=== PATIENT | male | born 1965 | race Caucasian/White ===

== ENCOUNTER 2018-06-20 08:31 | Day surgery (SDC) | payer BC ==
[2018-06-12 16:13] LABS: BASOPHILS % (AUTO) 0.3 % (0-1); EOSINOPHILS # (AUTO) 0.2 X10'3 (0-0.9); EOSINOPHILS % (AUTO) 1.7 % (0-6); LYMPHOCYTES # (AUTO) 2.4 X10'3 (1.1-4.8); MEAN CORPUSCULAR HGB CONC 33.4 % (33.0-36.5); MEAN CORPUSCULAR VOLUME 95.7 FL (78-98); MEAN PLATELET VOLUME 8.9 FL (7.4-10.4); MONOCYTES # (AUTO) 0.6 X10'3 (0-0.9); MONOCYTES % (AUTO) 5.9 % (2-12); NEUTROPHILS # (AUTO) 6.2 X10'3 (1.8-7.7); NEUTROPHILS % (AUTO) 66.1 % (42-75); PRE OP HEMATOCRIT 45.4 % (42.0-52.0); PRE OP HEMOGLOBIN 15.2 g/dL (14.0-17.9); PRE OP PLATELET COUNT 176 X10'3 (140-440); RED BLOOD COUNT 4.75 X10'6 (4.70-6.10); RED CELL DISTRIBUTION WIDTH 14.7 % (11.5-14.5)
[2018-06-12 16:27] LABS: ALBUMIN 3.4 G/DL (3.4-5.0); ALBUMIN/GLOBULIN RATIO 1.1 (1.1-1.5); ALKALINE PHOSPHATASE 79 IU/L (46-116); BLOOD UREA NITROGEN 19 MG/DL (7-18); BUN/CREATININE RATIO 19.4 (5.4-32.0); CALCIUM 9.8 MG/DL (8.5-10.1); CHLORIDE 107 MMOL/L (99-107); CREATININE 0.98 MG/DL (0.60-1.10); PRE OP ALT 25 U/L (30-65); PRE OP ANION GAP 5 (8-16); PRE OP AST 14 U/L (10-37); PRE OP BILIRUB, TOTAL 0.4 MG/DL (0.0-1.0); PRE OP GLUCOSE 102 MG/DL (70-104); PRE OP POTASSIUM 3.9 MMOL/L (3.4-5.1); PRE OP SODIUM 141 MMOL/L (135-145); TOTAL CARBON DIOXIDE 28.8 MMOL/L (24-32); TOTAL PROTEIN 6.6 G/DL (6.4-8.2); eGFR 79 ML/MIN
[~2018-06-20] VITALS: Ht 182.9 cm; Wt 147.5 kg
[2018-06-20] VITALS (22 sets, daily range): BP systolic 108–151; BP diastolic 64–106
[~2018-06-20 08:31] MED LIST: ALLO300T2 PO; AMLO-333 PO; APIX5TAB3 PO; ATEN100T PO; DOCUMENT DATE & TIME OF BETA-BLOCKER PO ONE; FLUT15.815 BOTHNARES; IBUP1CAP3 PO; PANT-47 PO; VANCOMYCIN INJ 1000 MG in NORMAL SALINE 250ml IV.SOLN IV ONE; cefazolin/dext.iso 2gm/50ml 50 ML IV ONE; famotidine 20mg tablet PO ONE; ringers solution, lacted 1,000 ML IV SCH
[2018-06-20] MEDS ORDERED: ringers solution, lacted 1,000 ML IV SCH (09:03)
[2018-06-20] MEDS ORDERED: ondansetron/PF 4mg/2ml inj IV PRN (09:05)
[2018-06-20] MEDS ORDERED: morphine 4 MG/ML inj SYRINge IV PRN ×2 (09:05)
[2018-06-20] MEDS ORDERED: meperidine/PF 25mg/ml syringe IV PRN ×3 (09:05)
[2018-06-20] MEDS ORDERED: proCHLORperazine 10 MG/2 ml inj IV PRN (09:05)
[2018-06-20] MEDS ORDERED: methylPREDNISolone sod succ 125mg/2ml vial ONE ×2 (10:22→11:31)
[2018-06-20] MEDS ORDERED: BUPIVAcaine/PF 2.5mg/ml (0.25%) 10ml vial ONE (10:22)
[2018-06-20] MEDS ORDERED: sevoflurane 250ml liquid IH ONE (10:47)
[2018-06-20] MEDS ORDERED: dexamethasone sod phosphate 10mg/ml inj ONE (10:47)
[2018-06-20] MEDS ORDERED: LIDOcaine 1%/PF 5ML 10 MG/ML VIAL ONE (10:47)
[2018-06-20] MEDS ORDERED: fentaNYL/PF 50MCG/1 ML 2ML syringe ONE (10:56)
[2018-06-20] MEDS ORDERED: MIDAZolam 5mg/5ml vial ONE (11:09)
[2018-06-20] MEDS ORDERED: ondansetron/PF 4mg/2ml inj ONE (11:22)
[2018-06-20] MEDS ORDERED: propofol inj 20 ML IV ONE (12:46)
--- NOTE | 2018-06-20 12:50 | NUR ---
Received from OR via [facility], accompanied by Anesthesiologist DR PRYOR and report given by Anesthesiologist. PT DROWSY, ANSWERS QUESTIONS APPROPRIATELY, DENIES PAIN, RIGHT ARM IN SPLINT FROM TOP OF SHOULDER/ARM PIT TO JUST BELOW TOP OF FINGERS, STERILE PROCESSING TECH 2-3 SECONDS, FINGERS PWD. Addendum: 06/20/18 at 1321 by Randi Colorado RN Amended: Links added.
--- NOTE | 2018-06-20 16:00 | NUR ---
PT D/CD TO HOME W/, PT AND VERBALIZE UNDERSTANDING OF D/C INSTRUCTIONS, INCLUDING REGIONAL NERVE BLOCK, ALL INFORMATION AND D/C ORDERS SENT W/PT. PT COMFORTABLE AND DEMONSTRATES UNDERSTANDING OF INSTRUCTIONS. Addendum: 06/20/18 at 1623 by Randi Colorado RN Amended: Links added.
== END 2018-06-20 16:00 | disposition home or self-care (01) ==
LOC: PAS 08:31
PROVIDERS: ATTEND Orthopaedic Surgery
DX: G56.01 Carpal tunnel syndrome, right upper limb (principal); G56.21 Lesion of ulnar nerve, right upper limb; G89.18 Other acute postprocedural pain; I48.91 Unspecified atrial fibrillation; I25.2 Old myocardial infarction; I10 Essential (primary) hypertension; K21.9 Gastro-esophageal reflux disease without esophagitis; E78.5 Hyperlipidemia, unspecified; M10.9 Gout, unspecified; E66.01 Morbid (severe) obesity due to excess calories; G47.33 Obstructive sleep apnea (adult) (pediatric); J45.998 Other asthma; I49.8 Other specified cardiac arrhythmias; Z86.73 Personal history of transient ischemic attack (TIA), and cerebral infarction without residual deficits; Z91.018 Allergy to other foods; Z79.1 Long term (current) use of non-steroidal anti-inflammatories (NSAID); Z68.41 Body mass index [BMI] 40.0-44.9, adult; Z80.9 Family history of malignant neoplasm, unspecified; Z79.891 Long term (current) use of opiate analgesic; Z79.01 Long term (current) use of anticoagulants; Z79.899 Other long term (current) drug therapy; Z98.890 Other specified postprocedural states; Z82.49 Family history of ischemic heart disease and other diseases of the circulatory system; Z83.3 Family history of diabetes mellitus; Z83.6 Family history of other diseases of the respiratory system
CPT/HCPCS: 36415; 64450; 64718; 64719; 64721; 80053; 85025; 93005; A6222; A6449; J0690; J1100; J2001; J2250; J2405; J2704; J2930; J3010; J3370; J3490; A4565; A6250; A7000; J7120

== ENCOUNTER 2021-02-09 14:07 | Inpatient (IN) | payer BC ==
[~2021-02-09] VITALS: Ht 182.9 cm; Wt 149.5 kg
[~2021-02-09 14:07] MED LIST changes: -AMLO-333 PO; +AMLO-382 PO; -DOCUMENT DATE & TIME OF BETA-BLOCKER PO ONE; -VANCOMYCIN INJ 1000 MG in NORMAL SALINE 250ml IV.SOLN IV ONE; -cefazolin/dext.iso 2gm/50ml 50 ML IV ONE; -famotidine 20mg tablet PO ONE; -ringers solution, lacted 1,000 ML IV SCH
[2021-02-09] MEDS ORDERED: normal saline 1000ML IV soln IV ONE (19:00)
[2021-02-09] MEDS ORDERED: vancomycin/NS 1 GM ADD-VANTAGE 250 ML IV ONE (19:00)
[2021-02-09] MEDS ORDERED: CefTRIAXone 2gm/D5W 50ml BAG 50 ML IV ONE (19:00)
[2021-02-09 19:45] LABS: BASOPHILS % (AUTO) 0.3 % (0-1); EOSINOPHILS # (AUTO) 0.1 X10'3 (0-0.9); EOSINOPHILS % (AUTO) 1.3 % (0-6); HEMATOCRIT 44.1 % (42.0-52.0); LYMPHOCYTES # (AUTO) 1.3 X10'3 (1.1-4.8); LYMPHOCYTES % (AUTO) 14.5 % (21-51); MEAN CORPUSCULAR HEMOGLOBIN 33.6 PG (27.0-31.0); MEAN CORPUSCULAR HGB CONC 34.1 g/dL (33.0-36.5); MEAN CORPUSCULAR VOLUME 98.7 FL (78-98); MEAN PLATELET VOLUME 9.4 FL (7.4-10.4); MONOCYTES # (AUTO) 0.6 X10'3 (0-0.9); MONOCYTES % (AUTO) 7.1 % (2-12); NEUTROPHILS % (AUTO) 76.8 % (42-75); PLATELET COUNT 144 X10'3 (140-440); RED BLOOD COUNT 4.47 X10'6 (4.70-6.10); RED CELL DISTRIBUTION WIDTH 14.8 % (11.5-14.5); WHITE BLOOD COUNT 9.1 X10'3 (4.5-11.0)
[2021-02-09] MEDS ORDERED: ondansetron 4mg rapidly disintigrating tab PO ONE (19:45)
[2021-02-09] MEDS ORDERED: HYDROcodone/acetaminophen 5mg/325mg tablet PO ONE (19:45)
[2021-02-09 19:50] LABS: ALANINE AMINOTRANSFERASE 17 U/L (12-78); ALBUMIN/GLOBULIN RATIO 0.8 (1.1-1.5); ALKALINE PHOSPHATASE 74 IU/L (46-116); ANION GAP 11 (8-16); ASPARTATE AMINO TRANSFERASE 7 U/L (10-37); BILIRUBIN,TOTAL 0.5 MG/DL (0.1-1.0); BLOOD UREA NITROGEN 20 MG/DL (7-18); CALCIUM 9.2 MG/DL (8.5-10.1); CHLORIDE 104 MMOL/L (99-107); CREATININE 1.11 MG/DL (0.60-1.10); GLUCOSE 98 MG/DL (70-104); POTASSIUM 3.5 MMOL/L (3.5-5.1); SODIUM 141 MMOL/L (135-145); TOTAL CARBON DIOXIDE 26.2 MMOL/L (24-32); TOTAL PROTEIN 6.8 G/DL (6.4-8.2); eGFR 68 ML/MIN
[2021-02-09] MEDS ORDERED: temazepam 15mg capsule PO PRN (21:00)
[2021-02-09] MEDS ORDERED: morphine 4 MG/ML inj SYRINge IV ONE (21:45)
[2021-02-09 23:35] LABS: CLARITY,URINE CLEAR (Clear); COLOR,URINE YELLOW (Yellow); GLUCOSE, URINE NEGATIVE (Neg); KETONES,URINE TRACE mg/dl (Neg); LEUKOCYTE ESTERASE ,URINE NEGATIVE (Neg); NITRITES, URINE NEGATIVE (Neg); OCCULT BLOOD,URINE NEGATIVE (Neg); PROTEIN,URINE 30 mg/dl (Neg)
[2021-02-09 23:43] LABS: UA COLLECTION TYPE NON-SPECIFIED
[2021-02-09 23:45] LABS: BACTERIA,URINE FEW /HPF (Neg); SQUAMOUS EPITHELIAL CELL,UR FEW /LPF (FEW); WBC,URINE 0-4 /HPF (0-4)
[2021-02-09 23:46] LABS: HYALINE CASTS 0-3 /LPF (NEGATIVE)
[2021-02-10] MEDS ORDERED: acetaminophen 650mg rectal suppository RC PRN
[2021-02-10] MEDS ORDERED: ondansetron/PF 4mg/2ml inj IV PRN
[2021-02-10] MEDS ORDERED: acetaminophen 325mg tablet PO PRN ×2
[2021-02-10] MEDS ORDERED: HYDROcodone/acetaminophen 5mg/325mg tablet PO PRN
[2021-02-10] MEDS ORDERED: diphenhydrAMINE 50 mg/ml inj IV PRN
[2021-02-10] MEDS ORDERED: HYDROmorphone inj. 0.5 MG/0.5 ML DISP.SYRIN IV PRN
[2021-02-10] MEDS ORDERED: morphine 2 MG/ML inj. syringe IV PRN ×2
[2021-02-10] MEDS ORDERED: bisacodyl 10mg suppository rectal RC PRN
[2021-02-10] MEDS ORDERED: diphenhydrAMINE 25mg capsule PO PRN
[2021-02-10] MEDS ORDERED: ondansetron 4mg rapidly disintigrating tab PO PRN
[2021-02-10] MEDS ORDERED: mag hydrox/Alum hydrox/simeth 30ml oral suspension PO PRN
[2021-02-10 01:47] LABS: HEMOGLOBIN A1C 5.9 % (4.5-6.2)
[2021-02-10 01:48] LABS: MAGNESIUM 1.7 MG/DL (1.5-2.4); PHOSPHORUS 2.7 MG/DL (2.3-4.5)
--- NOTE | 2021-02-10 02:17 | NUR ---
PT HAS CPAP AT HOME FOR SLEEP APNEA @14CM W/O HUMIDITY. PT REFUSED CPAP WHEN EQUIPMENT TAKEN TO ER. PT STATED HE WILL APPLY IT WHEN HE IS READY. UNIT AT BEDSIDE AND PATIENT WAS SHOWN HOW TO PLACE MASK ON IF NEEDED OR WILL PAGE RESP/NURSE FOR ASSISTANCE. THIS WAS SECOND REFUSAL Addendum: 02/10/21 at 0220 by Sangeetha Erwin RT Amended: Links added.
[2021-02-10 07:00] VITALS: BP 99/75
[2021-02-10 07:41] LABS: BASOPHILS % (AUTO) 0.3 % (0-1); EOSINOPHILS # (AUTO) 0.2 X10'3 (0-0.9); HEMATOCRIT 39.4 % (42.0-52.0); HEMOGLOBIN 13.3 g/dl (14.0-17.9); LYMPHOCYTES # (AUTO) 1.2 X10'3 (1.1-4.8); MEAN CORPUSCULAR HEMOGLOBIN 33.5 PG (27.0-31.0); MEAN CORPUSCULAR HGB CONC 33.9 g/dL (33.0-36.5); MEAN PLATELET VOLUME 9.1 FL (7.4-10.4); MONOCYTES # (AUTO) 0.7 X10'3 (0-0.9); MONOCYTES % (AUTO) 9.3 % (2-12); NEUTROPHILS # (AUTO) 5.4 X10'3 (1.8-7.7); NEUTROPHILS % (AUTO) 72.4 % (42-75); PLATELET COUNT 127 X10'3 (140-440); RED BLOOD COUNT 3.98 X10'6 (4.70-6.10); RED CELL DISTRIBUTION WIDTH 14.6 % (11.5-14.5); WHITE BLOOD COUNT 7.5 X10'3 (4.5-11.0)
[2021-02-10 07:58] LABS: PARTIAL THROMBOPLASTIN TIME 34 SECONDS (22-32)
[2021-02-10] MEDS ORDERED: tetanus & diphtheria toxoid (Td) vaccine 0.5ml IMVAC ONE (08:00)
[2021-02-10 08:02] LABS: ALANINE AMINOTRANSFERASE 16 U/L (12-78); ALBUMIN 2.5 G/DL (3.4-5.0); ALBUMIN/GLOBULIN RATIO 0.8 (1.1-1.5); ALKALINE PHOSPHATASE 56 IU/L (46-116); ANION GAP 8 (8-16); ASPARTATE AMINO TRANSFERASE 9 U/L (10-37); BILIRUBIN,TOTAL 0.4 MG/DL (0.1-1.0); BLOOD UREA NITROGEN 18 MG/DL (7-18); BUN/CREATININE RATIO 19.4 (5.4-32.0); CALCIUM 8.6 MG/DL (8.5-10.1); CHLORIDE 107 MMOL/L (99-107); CHOL/HDL RATIO 4.8 (0.00-4.99); CHOLESTEROL 105 MG/DL (0-200); CREATININE 0.93 MG/DL (0.60-1.10); GLUCOSE 96 MG/DL (70-104); HDL CHOLESTEROL 22 MG/DL (35-60); LDL CHOLESTEROL 59 MG/DL (50-100); POTASSIUM 3.3 MMOL/L (3.5-5.1); SODIUM 139 MMOL/L (135-145); TOTAL CARBON DIOXIDE 23.7 MMOL/L (24-32); TOTAL PROTEIN 5.8 G/DL (6.4-8.2); TRIGLYCERIDES 110 MG/DL (20-135); eGFR 84 ML/MIN
[2021-02-10] MEDS ORDERED: potassium Cl 40MEQ/1/2NS 520ml 520 ML IV PRN (08:15)
[2021-02-10] MEDS ORDERED: magnesium 4gm in 100ml NS 100 ML IV PRN (08:15)
[2021-02-10] MEDS ORDERED: magnesium Cl slow-release 64mg tablet PO PRN (08:15)
[2021-02-10] MEDS ORDERED: potassium Cl 20 mEq SR tablet PO PRN (08:15)
[2021-02-10] MEDS: docusate sod 100mg capsule PO SCH ×2 (08:58→20:22)
[2021-02-10] MEDS: pantoprazole 40mg Tablet.DR PO SCH (08:59)
[2021-02-10] MEDS: atenolol 50mg tablet PO SCH (08:59)
[2021-02-10] MEDS: amLODIPine 5mg tablet PO SCH (09:00)
[2021-02-10] MEDS: apixaban 5mg tablet PO SCH ×2 (09:01→20:22)
[2021-02-10] MEDS: losartan 50mg tablet PO SCH (09:01)
[2021-02-10] MEDS ORDERED: FAMO40TA58 PO (09:22)
[2021-02-10] MEDS: allopurinol 300 MG tablet PO SCH (10:14)
[2021-02-10] MEDS: normal saline 1000ml 1,000 ML IV SCH ×2 (10:20)
[2021-02-10] MEDS: piperacillin/tazo 4.5gm/100ml 100 ML IV SCH ×3 (10:24→16:22)
[2021-02-10] MEDS: VANCOmycin 1250MG/NS 250ml Bag 250 ML IV SCH ×2 (10:25→20:25)
[2021-02-10 11:00] VITALS: BP 124/82
[2021-02-10] MEDS: HYDROcodone/acetaminophen 10/325mg tab PO PRN ×2 (14:34→20:23)
[2021-02-10] MEDS: potassium Cl 20 mEq SR tablet PO PRN ×2 (16:22→20:22)
[2021-02-10] MEDS: magnesium hydroxide 30ml (MOM) UD suspension PO PRN (17:35)
[2021-02-10 18:00] VITALS: BP 119/80
--- NOTE | 2021-02-10 18:30 | NUR ---
Patient in room [facility] 347. I have received report from RAFAL FERGUSON and had the opportunity to ask questions and assume patient care.
[2021-02-10] MEDS: K and/or MAG REPLACEMENT MC SCH (20:00)
[2021-02-10] MEDS: lactobacillus rhamnosus 10,000 MMU CELLS/CAPSULE PO SCH (20:22)
[2021-02-10] MEDS: fluticasone nasal spray 16GM bottle NS SCH (20:24)
[2021-02-11] VITALS: BP 121/85
[2021-02-11] MEDS: piperacillin/tazo 4.5gm/100ml 100 ML IV SCH ×3 (01:52→16:34)
[2021-02-11 06:03] LABS: BASOPHILS % (AUTO) 0.4 % (0-1); EOSINOPHILS # (AUTO) 0.2 X10'3 (0-0.9); EOSINOPHILS % (AUTO) 2.3 % (0-6); HEMATOCRIT 42.6 % (42.0-52.0); HEMOGLOBIN 14.5 g/dl (14.0-17.9); LYMPHOCYTES % (AUTO) 24.9 % (21-51); MEAN CORPUSCULAR HEMOGLOBIN 33.4 PG (27.0-31.0); MEAN CORPUSCULAR VOLUME 98.2 FL (78-98); MEAN PLATELET VOLUME 9.1 FL (7.4-10.4); MONOCYTES # (AUTO) 0.8 X10'3 (0-0.9); MONOCYTES % (AUTO) 10.4 % (2-12); NEUTROPHILS # (AUTO) 4.9 X10'3 (1.8-7.7); PLATELET COUNT 160 X10'3 (140-440); RED BLOOD COUNT 4.34 X10'6 (4.70-6.10); RED CELL DISTRIBUTION WIDTH 14.6 % (11.5-14.5); WHITE BLOOD COUNT 7.9 X10'3 (4.5-11.0)
--- NOTE | 2021-02-11 06:08 | NUR ---
Problems reprioritized. Patient report given, questions answered & plan of care reviewed with MAGDIEL FERGUSON.
[2021-02-11 06:22] LABS: ALANINE AMINOTRANSFERASE 17 U/L (12-78); ALBUMIN 2.7 G/DL (3.4-5.0); ALBUMIN/GLOBULIN RATIO 0.7 (1.1-1.5); ALKALINE PHOSPHATASE 68 IU/L (46-116); ANION GAP 8 (8-16); ASPARTATE AMINO TRANSFERASE 11 U/L (10-37); BILIRUBIN,TOTAL 0.4 MG/DL (0.1-1.0); BLOOD UREA NITROGEN 15 MG/DL (7-18); BUN/CREATININE RATIO 15.6 (5.4-32.0); CALCIUM 8.9 MG/DL (8.5-10.1); CHLORIDE 108 MMOL/L (99-107); CREATININE 0.96 MG/DL (0.60-1.10); GLUCOSE 101 MG/DL (70-104); MAGNESIUM 1.8 MG/DL (1.5-2.4); PHOSPHORUS 2.6 MG/DL (2.3-4.5); POTASSIUM 3.7 MMOL/L (3.5-5.1); SODIUM 141 MMOL/L (135-145); TOTAL CARBON DIOXIDE 25.4 MMOL/L (24-32); TOTAL PROTEIN 6.5 G/DL (6.4-8.2); eGFR 81 ML/MIN
[2021-02-11 07:00] VITALS: BP 149/98
[2021-02-11] MEDS: atenolol 50mg tablet PO SCH (07:37)
[2021-02-11] MEDS: amLODIPine 5mg tablet PO SCH (07:37)
[2021-02-11] MEDS: losartan 50mg tablet PO SCH (07:37)
[2021-02-11] MEDS: HYDROcodone/acetaminophen 10/325mg tab PO PRN ×2 (07:38→14:03)
[2021-02-11] MEDS: pantoprazole 40mg Tablet.DR PO SCH (07:38)
[2021-02-11] MEDS: allopurinol 300 MG tablet PO SCH (07:39)
[2021-02-11] MEDS: lactobacillus rhamnosus 10,000 MMU CELLS/CAPSULE PO SCH ×2 (07:39→19:17)
[2021-02-11] MEDS: docusate sod 100mg capsule PO SCH ×2 (07:39→19:17)
[2021-02-11] MEDS: VANCOmycin 1250MG/NS 250ml Bag 250 ML IV SCH ×2 (07:39→19:17)
[2021-02-11] MEDS: apixaban 5mg tablet PO SCH ×2 (07:39→19:17)
[2021-02-11] MEDS: K and/or MAG REPLACEMENT MC SCH ×2 (08:00→19:17)
[2021-02-11] MEDS: magnesium hydroxide 30ml (MOM) UD suspension PO PRN (08:24)
[2021-02-11 11:00] VITALS: BP 125/88
--- NOTE | 2021-02-11 18:23 | NUR ---
Problems reprioritized. Patient report given, questions answered & plan of care reviewed with Catrina FERGUSON.
[2021-02-11] MEDS ORDERED: VANCOMYCIN LEVEL IV ONE (18:30)
[2021-02-11 19:00] VITALS: BP 160/94
[2021-02-11] MEDS: fluticasone nasal spray 16GM bottle NS SCH (21:40)
[2021-02-12] VITALS: BP 163/100
[2021-02-12] MEDS: normal saline 1000ml 1,000 ML IV SCH
[2021-02-12] MEDS: piperacillin/tazo 4.5gm/100ml 100 ML IV SCH ×3 (00:02→16:09)
[2021-02-12] MEDS: HYDROcodone/acetaminophen 10/325mg tab PO PRN ×4 (00:04→21:28)
[2021-02-12 05:00] VITALS: BP 146/72
[2021-02-12 06:35] LABS: BASOPHILS % (AUTO) 0.4 % (0-1); EOSINOPHILS # (AUTO) 0.2 X10'3 (0-0.9); EOSINOPHILS % (AUTO) 2.3 % (0-6); HEMATOCRIT 41.5 % (42.0-52.0); LYMPHOCYTES # (AUTO) 1.9 X10'3 (1.1-4.8); LYMPHOCYTES % (AUTO) 24.2 % (21-51); MEAN CORPUSCULAR HEMOGLOBIN 33.6 PG (27.0-31.0); MEAN CORPUSCULAR HGB CONC 33.8 g/dL (33.0-36.5); MEAN CORPUSCULAR VOLUME 99.3 FL (78-98); MEAN PLATELET VOLUME 8.7 FL (7.4-10.4); MONOCYTES # (AUTO) 0.8 X10'3 (0-0.9); MONOCYTES % (AUTO) 9.9 % (2-12); NEUTROPHILS % (AUTO) 63.2 % (42-75); PLATELET COUNT 177 X10'3 (140-440); RED BLOOD COUNT 4.18 X10'6 (4.70-6.10); RED CELL DISTRIBUTION WIDTH 14.7 % (11.5-14.5); WHITE BLOOD COUNT 7.8 X10'3 (4.5-11.0)
--- NOTE | 2021-02-12 06:48 | NUR ---
I have received report from Catrina FERGUSON and had the opportunity to ask questions and assume patient care.
[2021-02-12 06:56] LABS: ALANINE AMINOTRANSFERASE 18 U/L (12-78); ALBUMIN 2.8 G/DL (3.4-5.0); ALBUMIN/GLOBULIN RATIO 0.8 (1.1-1.5); ALKALINE PHOSPHATASE 62 IU/L (46-116); ANION GAP 9 (8-16); ASPARTATE AMINO TRANSFERASE 12 U/L (10-37); BILIRUBIN,TOTAL 0.6 MG/DL (0.1-1.0); BLOOD UREA NITROGEN 15 MG/DL (7-18); BUN/CREATININE RATIO 16.7 (5.4-32.0); CALCIUM 9.4 MG/DL (8.5-10.1); CHLORIDE 107 MMOL/L (99-107); GLUCOSE 99 MG/DL (70-104); POTASSIUM 3.8 MMOL/L (3.5-5.1); SODIUM 140 MMOL/L (135-145); TOTAL CARBON DIOXIDE 23.9 MMOL/L (24-32); TOTAL PROTEIN 6.4 G/DL (6.4-8.2); eGFR 87 ML/MIN
[2021-02-12] MEDS: VANCOmycin 1250MG/NS 250ml Bag 250 ML IV SCH (07:33)
[2021-02-12] MEDS: atenolol 50mg tablet PO SCH (07:34)
[2021-02-12] MEDS: amLODIPine 5mg tablet PO SCH (07:35)
[2021-02-12] MEDS: allopurinol 300 MG tablet PO SCH (07:36)
[2021-02-12] MEDS: pantoprazole 40mg Tablet.DR PO SCH (07:36)
[2021-02-12] MEDS: losartan 50mg tablet PO SCH (07:36)
[2021-02-12] MEDS: apixaban 5mg tablet PO SCH ×2 (07:36→21:21)
[2021-02-12] MEDS: lactobacillus rhamnosus 10,000 MMU CELLS/CAPSULE PO SCH ×2 (07:36→21:21)
[2021-02-12] MEDS: docusate sod 100mg capsule PO SCH ×2 (07:36→21:22)
[2021-02-12] MEDS: K and/or MAG REPLACEMENT MC SCH ×2 (07:50→20:00)
[2021-02-12 08:00] VITALS: BP 132/75
[2021-02-12 12:03] VITALS: BP 137/78
[2021-02-12 18:00] VITALS: BP 159/104
--- NOTE | 2021-02-12 18:28 | NUR ---
Problems reprioritized. Patient report given, questions answered & plan of care reviewed with Enedina FERGUSON.
--- NOTE | 2021-02-12 18:30 | NUR ---
Patient in room [facility] 347. I have received report from MU FERGUSON and had the opportunity to ask questions and assume patient care.
[2021-02-12] MEDS ORDERED: iohexol 300mg/ml 100ml inj. ONE (18:57)
--- NOTE | 2021-02-12 19:16 | NUR ---
PATIENT LEFT FOR CT SCAN OF THE RIGHT LOWER EXTREMITIES WITH TECH IN A WHEELCHAIR.
--- NOTE | 2021-02-12 19:45 | NUR ---
PATIENT BACK TO HIS ROOM AFTER CT SCAN RIGHT LOWER LEG.
[2021-02-12] MEDS: fluticasone nasal spray 16GM bottle NS SCH (21:22)
[2021-02-13] VITALS: BP 148/97
[2021-02-13] MEDS: piperacillin/tazo 4.5gm/100ml 100 ML IV SCH ×4 (00:15→23:08)
--- NOTE | 2021-02-13 06:30 | NUR ---
Problems reprioritized. Patient report given, questions answered & plan of care reviewed with MU FERGUSON.
--- NOTE | 2021-02-13 06:45 | NUR ---
I have received report from NOC shift RN and had the opportunity to ask questions and assume patient care.
[2021-02-13 07:12] VITALS: BP 140/83
[2021-02-13 07:51] LABS: BASOPHILS % (AUTO) 0.3 % (0-1); EOSINOPHILS # (AUTO) 0.1 X10'3 (0-0.9); EOSINOPHILS % (AUTO) 2.1 % (0-6); HEMATOCRIT 40.3 % (42.0-52.0); HEMOGLOBIN 13.7 g/dl (14.0-17.9); LYMPHOCYTES # (AUTO) 1.3 X10'3 (1.1-4.8); LYMPHOCYTES % (AUTO) 19.2 % (21-51); MEAN CORPUSCULAR HGB CONC 33.9 g/dL (33.0-36.5); MEAN CORPUSCULAR VOLUME 97.3 FL (78-98); MEAN PLATELET VOLUME 8.1 FL (7.4-10.4); MONOCYTES # (AUTO) 0.7 X10'3 (0-0.9); MONOCYTES % (AUTO) 9.7 % (2-12); NEUTROPHILS # (AUTO) 4.7 X10'3 (1.8-7.7); NEUTROPHILS % (AUTO) 68.7 % (42-75); PLATELET COUNT 200 X10'3 (140-440); RED BLOOD COUNT 4.15 X10'6 (4.70-6.10); RED CELL DISTRIBUTION WIDTH 14.3 % (11.5-14.5); WHITE BLOOD COUNT 6.8 X10'3 (4.5-11.0)
[2021-02-13] MEDS: apixaban 5mg tablet PO SCH ×2 (07:54→20:46)
[2021-02-13] MEDS: amLODIPine 5mg tablet PO SCH (07:55)
[2021-02-13] MEDS: losartan 50mg tablet PO SCH (07:55)
[2021-02-13] MEDS: allopurinol 300 MG tablet PO SCH (07:56)
[2021-02-13] MEDS: atenolol 50mg tablet PO SCH (07:56)
[2021-02-13] MEDS: docusate sod 100mg capsule PO SCH ×2 (07:56→20:45)
[2021-02-13] MEDS: pantoprazole 40mg Tablet.DR PO SCH (07:56)
[2021-02-13] MEDS: lactobacillus rhamnosus 10,000 MMU CELLS/CAPSULE PO SCH ×2 (07:56→20:46)
[2021-02-13] MEDS: HYDROcodone/acetaminophen 10/325mg tab PO PRN ×3 (07:59→20:46)
[2021-02-13] MEDS: magnesium hydroxide 30ml (MOM) UD suspension PO PRN (07:59)
[2021-02-13] MEDS: K and/or MAG REPLACEMENT MC SCH ×2 (08:00→20:50)
[2021-02-13 08:13] LABS: ALANINE AMINOTRANSFERASE 19 U/L (12-78); ALBUMIN 2.7 G/DL (3.4-5.0); ALBUMIN/GLOBULIN RATIO 0.7 (1.1-1.5); ANION GAP 7 (8-16); ASPARTATE AMINO TRANSFERASE 12 U/L (10-37); BILIRUBIN,TOTAL 0.6 MG/DL (0.1-1.0); BLOOD UREA NITROGEN 13 MG/DL (7-18); BUN/CREATININE RATIO 13.7 (5.4-32.0); CALCIUM 9.2 MG/DL (8.5-10.1); CHLORIDE 108 MMOL/L (99-107); CREATININE 0.95 MG/DL (0.60-1.10); GLUCOSE 95 MG/DL (70-104); MAGNESIUM 1.7 MG/DL (1.5-2.4); PHOSPHORUS 2.9 MG/DL (2.3-4.5); POTASSIUM 4.2 MMOL/L (3.5-5.1); SODIUM 142 MMOL/L (135-145); TOTAL CARBON DIOXIDE 26.9 MMOL/L (24-32); TOTAL PROTEIN 6.4 G/DL (6.4-8.2); eGFR 82 ML/MIN
[2021-02-13 08:31] LABS: ALKALINE PHOSPHATASE 55 IU/L (46-116)
[2021-02-13] MEDS ORDERED: furosemide 40mg/4ml inj IV ONE (10:45)
[2021-02-13 11:52] VITALS: BP 141/105
[2021-02-13] MEDS: furosemide 40mg/4ml inj IV SCH (16:28)
[2021-02-13 19:16] VITALS: BP 146/84
[2021-02-13] MEDS: fluticasone nasal spray 16GM bottle NS SCH (20:47)
[2021-02-13] MEDS: normal saline 1000ml 1,000 ML IV SCH (20:47)
[2021-02-14] VITALS: BP 143/93
--- NOTE | 2021-02-14 | NUR ---
Patient in room [facility] 347. I have received report from MU and had the opportunity to ask questions and assume patient care. PT RESTING AT THIS TIME
--- NOTE | 2021-02-14 00:17 | NUR ---
Problems reprioritized. Patient report given, questions answered & plan of care reviewed with Pebbles FERGUSON.
[2021-02-14] MEDS: HYDROcodone/acetaminophen 10/325mg tab PO PRN ×4 (01:10→19:40)
--- NOTE | 2021-02-14 06:02 | NUR ---
Problems reprioritized. Patient report given, questions answered & plan of care reviewed with LIZET.
[2021-02-14] MEDS ORDERED: VANCOMYCIN LEVEL IV ONE (06:30)
--- NOTE | 2021-02-14 06:33 | NUR ---
Patient in room [facility] 347. I have received report from Pebbles FERGUSON and had the opportunity to ask questions and assume patient care.
[2021-02-14 07:04] LABS: BASOPHILS % (AUTO) 0.6 % (0-1); EOSINOPHILS # (AUTO) 0.2 X10'3 (0-0.9); HEMATOCRIT 42.5 % (42.0-52.0); HEMOGLOBIN 14.6 g/dl (14.0-17.9); LYMPHOCYTES # (AUTO) 1.8 X10'3 (1.1-4.8); MEAN CORPUSCULAR HEMOGLOBIN 33.4 PG (27.0-31.0); MEAN CORPUSCULAR HGB CONC 34.3 g/dL (33.0-36.5); MEAN CORPUSCULAR VOLUME 97.4 FL (78-98); MEAN PLATELET VOLUME 8.3 FL (7.4-10.4); MONOCYTES # (AUTO) 0.6 X10'3 (0-0.9); MONOCYTES % (AUTO) 9.8 % (2-12); NEUTROPHILS # (AUTO) 3.9 X10'3 (1.8-7.7); NEUTROPHILS % (AUTO) 59.6 % (42-75); PLATELET COUNT 239 X10'3 (140-440); RED BLOOD COUNT 4.36 X10'6 (4.70-6.10); RED CELL DISTRIBUTION WIDTH 14.7 % (11.5-14.5); WHITE BLOOD COUNT 6.5 X10'3 (4.5-11.0)
[2021-02-14] MEDS: lactobacillus rhamnosus 10,000 MMU CELLS/CAPSULE PO SCH ×2 (07:31→19:40)
[2021-02-14] MEDS: apixaban 5mg tablet PO SCH ×2 (07:31→19:40)
[2021-02-14] MEDS: docusate sod 100mg capsule PO SCH ×2 (07:31→19:40)
[2021-02-14] MEDS: pantoprazole 40mg Tablet.DR PO SCH (07:32)
[2021-02-14] MEDS: allopurinol 300 MG tablet PO SCH (07:32)
[2021-02-14] MEDS: amLODIPine 5mg tablet PO SCH (07:32)
[2021-02-14] MEDS: atenolol 50mg tablet PO SCH (07:33)
[2021-02-14] MEDS: furosemide 40mg/4ml inj IV SCH ×2 (07:34→19:36)
[2021-02-14 07:50] LABS: ALANINE AMINOTRANSFERASE 22 U/L (12-78); ALBUMIN 2.8 G/DL (3.4-5.0); ALBUMIN/GLOBULIN RATIO 0.7 (1.1-1.5); ALKALINE PHOSPHATASE 59 IU/L (46-116); ANION GAP 9 (8-16); ASPARTATE AMINO TRANSFERASE 13 U/L (10-37); BILIRUBIN,TOTAL 0.7 MG/DL (0.1-1.0); BLOOD UREA NITROGEN 15 MG/DL (7-18); BUN/CREATININE RATIO 13.8 (5.4-32.0); CALCIUM 9.4 MG/DL (8.5-10.1); CHLORIDE 105 MMOL/L (99-107); CREATININE 1.09 MG/DL (0.60-1.10); GLUCOSE 90 MG/DL (70-104); MAGNESIUM 1.9 MG/DL (1.5-2.4); PHOSPHORUS 3.8 MG/DL (2.3-4.5); POTASSIUM 3.9 MMOL/L (3.5-5.1); SODIUM 142 MMOL/L (135-145); TOTAL CARBON DIOXIDE 27.9 MMOL/L (24-32); eGFR 70 ML/MIN
[2021-02-14 08:00] VITALS: BP 158/120
[2021-02-14] MEDS: K and/or MAG REPLACEMENT MC SCH ×2 (08:00→19:40)
[2021-02-14 09:47] VITALS: BP 139/97
[2021-02-14] MEDS: losartan 50mg tablet PO SCH (09:48)
[2021-02-14] MEDS: piperacillin/tazo 4.5gm/100ml 100 ML IV SCH ×2 (09:48→17:16)
--- NOTE | 2021-02-14 11:20 | NUR ---
paged Dr flower regarding pt's NPO. He wants to eat. Pt had his ultrasound. Negative test.
[2021-02-14 12:00] VITALS: BP 129/85
--- NOTE | 2021-02-14 15:05 | NUR ---
Initial: Pt admit DX RLE cellulitis, afib, HTN, and hx gout per MD note. PO ~100% avg carb controlled diet likely meeting minimum needs as pending scaled wt this admit. Noted pt on carb controlled diet w/ no hx DM and A1C 5.9 this admit; would benefit from heart healthy diet if MD agreeable. Double eggs WB and double meats BIDLD added for satiety; dietary notified. LBM 02/12 receiving routine colace and PRN MoM 02/13. No nutrition intervention at this time. Will continue to monitor. Rec: 1. advance to heart healthy diet; current carb controlled diet w/ no hx DM and A1C 5.9 2. double eggs WB; double meats BIDLD for satiety 3. routine bowel care 4. scaled wt this admit; subsequent weekly wts Addendum: 02/14/21 at [address] Amended: Links added.
--- NOTE | 2021-02-14 18:15 | NUR ---
Patient in room [facility] 347. I have received report from PHYLLIS HINDS and had the opportunity to ask questions and assume patient care. Addendum: 02/14/21 at 1907 by Leny Hernandez RN Amended: Links added.
--- NOTE | 2021-02-14 18:38 | NUR ---
Problems reprioritized. Patient report given, questions answered & plan of care reviewed with estelle FERGUSON.
--- NOTE | 2021-02-14 18:45 | NUR ---
at bedside with pt and getting ready to leave for home.
[2021-02-14 19:30] VITALS: BP 151/92
--- NOTE | 2021-02-14 20:00 | NUR ---
pt medicated for pain with po norco.
[2021-02-14] MEDS: fluticasone nasal spray 16GM bottle NS SCH (21:27)
--- NOTE | 2021-02-14 22:35 | NUR ---
pt left the chair and went to bed and put his cpap on.
[2021-02-15] MEDS: piperacillin/tazo 4.5gm/100ml 100 ML IV SCH ×2 (01:01→08:00)
--- NOTE | 2021-02-15 01:25 | NUR ---
pt awoke up to brp to void. tolerated well then put self back on cpap and back to bed.
--- NOTE | 2021-02-15 02:56 | NUR ---
pt resting with cpap on.
[2021-02-15] MEDS: normal saline 1000ml 1,000 ML IV SCH (04:56)
--- NOTE | 2021-02-15 05:00 | NUR ---
UP TO BRP TO VOID THEN BACK TO BED ON CPAP.
--- NOTE | 2021-02-15 06:24 | NUR ---
Problems reprioritized. Patient report given, questions answered & plan of care reviewed with PHYLLIS SAAVEDRA. Addendum: 02/15/21 at 0625 by Leny Hernandez RN Amended: Links added.
[2021-02-15 06:51] LABS: MAGNESIUM 1.8 MG/DL (1.5-2.4); PHOSPHORUS 3.7 MG/DL (2.3-4.5)
[2021-02-15 07:30] VITALS: BP 159/99
[2021-02-15] MEDS: docusate sod 100mg capsule PO SCH (07:46)
[2021-02-15] MEDS: losartan 50mg tablet PO SCH (07:46)
[2021-02-15] MEDS: pantoprazole 40mg Tablet.DR PO SCH (07:46)
[2021-02-15] MEDS: amLODIPine 5mg tablet PO SCH (07:46)
[2021-02-15] MEDS: allopurinol 300 MG tablet PO SCH (07:46)
[2021-02-15] MEDS: atenolol 50mg tablet PO SCH (07:46)
[2021-02-15] MEDS: apixaban 5mg tablet PO SCH (07:47)
[2021-02-15] MEDS: lactobacillus rhamnosus 10,000 MMU CELLS/CAPSULE PO SCH (07:47)
[2021-02-15] MEDS: HYDROcodone/acetaminophen 10/325mg tab PO PRN (07:48)
[2021-02-15] MEDS: K and/or MAG REPLACEMENT MC SCH (07:55)
[2021-02-15] MEDS: furosemide 40mg/4ml inj IV SCH (09:16)
[2021-02-15] MEDS ORDERED: POTA10TA36 PO (09:53)
[2021-02-15] MEDS ORDERED: HYDR-3965 PO (09:53)
[2021-02-15] MEDS ORDERED: AMOX-422 PO (09:53)
[2021-02-15] MEDS ORDERED: FURO40TA4 PO (09:53)
--- NOTE | 2021-02-15 11:10 | NUR ---
Page sent to PT .... [id number] Yessenia P: patient requesting help with learning how to use a cane before he discharges. DC orders are in. thanks!
[2021-02-15 11:57] VITALS: BP 135/97
--- NOTE | 2021-02-15 13:00 | NUR ---
patient working with PT to learn how to use a cane
--- NOTE | 2021-02-15 13:54 | NUR ---
Patient stable and appropriate for discharge home with . IV removed, new prescriptions e-scripted to preferred pharmacy, norco rx hardcopy given to patient. All belongings taken from room. All discharge instructions and education was given and reviewed with patient, all questions answered.
== END 2021-02-15 13:28 | disposition home or self-care (01) | DRG 603 ==
LOC: ER 14:10 → ED HOLD 23:59 → SUR 3N 02-10 07:26
PROVIDERS: ADMIT Family Medicine; ATTEND Family Medicine
PROC: 3E0234Z Introduction of Serum, Toxoid and Vaccine into Muscle, Percutaneous Approach (ICD-10-PCS; 2021-02-10)
PROC: 5A09357 Assistance with Respiratory Ventilation, Less than 24 Consecutive Hours, Continuous Positive Airway Pressure (ICD-10-PCS; principal; 2021-02-11)
PROC: 5A09357 Assistance with Respiratory Ventilation, Less than 24 Consecutive Hours, Continuous Positive Airway Pressure (ICD-10-PCS; 2021-02-12)
PROC: BQ2R1ZZ Computerized Tomography (CT Scan) of Right Lower Extremity using Low Osmolar Contrast (ICD-10-PCS; 2021-02-12)
PROC: 5A09357 Assistance with Respiratory Ventilation, Less than 24 Consecutive Hours, Continuous Positive Airway Pressure (ICD-10-PCS; 2021-02-15)
DX: L03.115 Cellulitis of right lower limb (principal); Z68.41 Body mass index [BMI] 40.0-44.9, adult; E66.01 Morbid (severe) obesity due to excess calories; E86.0 Dehydration; G47.33 Obstructive sleep apnea (adult) (pediatric); R82.4 Acetonuria; G89.4 Chronic pain syndrome; I10 Essential (primary) hypertension; I48.91 Unspecified atrial fibrillation; E87.6 Hypokalemia; K21.9 Gastro-esophageal reflux disease without esophagitis; M1A.9XX0 Chronic gout, unspecified, without tophus (tophi); Z79.01 Long term (current) use of anticoagulants; Z86.73 Personal history of transient ischemic attack (TIA), and cerebral infarction without residual deficits; Z23 Encounter for immunization; Z91.018 Allergy to other foods; Z86.718 Personal history of other venous thrombosis and embolism; Z82.5 Family history of asthma and other chronic lower respiratory diseases; Z83.3 Family history of diabetes mellitus; Z83.42 Family history of familial hypercholesterolemia; Z79.899 Other long term (current) drug therapy; Z71.3 Dietary counseling and surveillance
CPT/HCPCS: 36415; 71045; 73701; 76881; 80053; 80061; 80202; 81001; 83036; 83605; 83735; 84100; 84145; 85025; 85610; 85730; 87040; 87081; 90715; 93971; 94660; 94760; 96365; 96366; 96368; 96375; 97116; 97164; 99285; G0378; J0696; J1940; J2270; J2543; J3370; J7030; Q9967

== ENCOUNTER 2022-06-23 14:41 | Inpatient (IN) | payer BC ==
[2022-06-21 09:43] LABS: APTT 29 SECONDS (22-32)
[2022-06-21 09:46] LABS: ALBUMIN 3.6 G/DL (3.4-5.0); BLOOD UREA NITROGEN 17 MG/DL (7-18); CALCIUM 9.8 MG/DL (8.5-10.1); CHLORIDE 106 MMOL/L (99-107); CHOL/HDL RATIO 3.9 (0.00-4.99); CHOLESTEROL 148 MG/DL (0-200); CREATININE 1.13 MG/DL (0.60-1.10); GLUCOSE 105 MG/DL (70-104); HDL CHOLESTEROL 38 MG/DL (35-60); LDL CHOLESTEROL 91 MG/DL (50-100); POTASSIUM 3.8 MMOL/L (3.5-5.1); TOTAL CARBON DIOXIDE 27.4 MMOL/L (24-32); TRIGLYCERIDES 130 MG/DL (20-135); eGFR 66 ML/MIN
[2022-06-21 09:47] LABS: BASOPHILS % (AUTO) 0.5 % (0-1); EOSINOPHILS # (AUTO) 0.3 X10'3 (0-0.9); EOSINOPHILS % (AUTO) 3.5 % (0-6); HEMATOCRIT 46.8 % (42.0-52.0); HEMOGLOBIN 15.7 g/dl (14.0-17.9); LYMPHOCYTES # (AUTO) 2.3 X10'3 (1.1-4.8); LYMPHOCYTES % (AUTO) 31.3 % (21-51); MEAN CORPUSCULAR HEMOGLOBIN 33.1 PG (27.0-31.0); MEAN CORPUSCULAR HGB CONC 33.5 g/dL (33.0-36.5); MEAN CORPUSCULAR VOLUME 98.7 FL (78-98); MEAN PLATELET VOLUME 8.7 FL (7.4-10.4); MONOCYTES # (AUTO) 0.5 X10'3 (0-0.9); MONOCYTES % (AUTO) 7.4 % (2-12); NEUTROPHILS # (AUTO) 4.2 X10'3 (1.8-7.7); NEUTROPHILS % (AUTO) 57.3 % (42-75); PLATELET COUNT 180 X10'3 (140-440); RED BLOOD COUNT 4.74 X10'6 (4.70-6.10); RED CELL DISTRIBUTION WIDTH 14.7 % (11.5-14.5); WHITE BLOOD COUNT 7.3 X10'3 (4.5-11.0)
[2022-06-21 09:56] LABS: ANION GAP 9 (8-16); SODIUM 142 MMOL/L (135-145)
[2022-06-23] VITALS (13 sets, daily range): BP systolic 108–133; BP diastolic 70–88
[~2022-06-23] VITALS: Ht 182.9 cm; Wt 152.0 kg
[~2022-06-23 14:41] MED LIST changes: +FAMO40TA58 PO; +FURO40TA4 PO; -IBUP1CAP3 PO; -PANT-47 PO; +POTA-206 PO
[2022-06-23] MEDS ORDERED: LORazepam 0.5 MG tablet PO PRN (15:05)
[2022-06-23] MEDS ORDERED: diphenhydrAMINE 25mg capsule PO PRN (15:05)
[2022-06-23] MEDS ORDERED: APIX5TAB3 PO (15:10)
[2022-06-23] MEDS ORDERED: PANT40TA54 PO (15:12)
[2022-06-23] MEDS ORDERED: HYDR12.55 PO (15:12)
[2022-06-23] MEDS ORDERED: Mometasone Furoate (15:15)
[2022-06-23] MEDS ORDERED: nitroGLYCERIN-Tridil 50MG/D5W 250 ML IV ONE (15:21)
[2022-06-23] MEDS ORDERED: LIDOcaine 1% (10mg/ml) 2ml vial ONE (15:22)
[2022-06-23] MEDS ORDERED: fentaNYL/PF 50MCG/1 ML 2ML syringe ONE (15:22)
[2022-06-23] MEDS ORDERED: heparin 1,000unit/ml 10ml vial 10 ML ONE (15:22)
[2022-06-23] MEDS ORDERED: verapamil 2.5 mg/ml inj IV ONE (15:22)
[2022-06-23] MEDS ORDERED: midazolam 1 mg/ML 2ml injection ONE (15:22)
[2022-06-23] MEDS ORDERED: iohexol 350MG/ML 100ml bottle IV ONE ×2 (15:22→16:17)
[2022-06-23] MEDS ORDERED: LIDOcaine 1% 30ml preserv. free vial ONE (16:04)
[2022-06-23] MEDS ORDERED: amiodarone 50MG/ML inj IV ONE (16:20)
[2022-06-23] MEDS ORDERED: furosemide 40mg/4ml inj ONE (16:35)
[2022-06-23] MEDS ORDERED: LIDOcaine 2% (20 mg/ml) 5ml cardiac syringe ONE (17:02)
[2022-06-23] MEDS ORDERED: aspirin 81mg tab.chew PO ONE (17:35)
[2022-06-23] MEDS ORDERED: ondansetron/PF 4mg/2ml inj IV PRN (17:35)
[2022-06-23] MEDS ORDERED: proCHLORperazine 10 MG/2 ml inj IV PRN (17:35)
[2022-06-23] MEDS ORDERED: OXAZEpam 15mg capsule PO PRN (17:35)
[2022-06-23] MEDS ORDERED: HYDROcodone/acetaminophen 5mg/325mg tablet PO PRN (17:35)
--- NOTE | 2022-06-23 19:10 | NUR ---
Gave report to Alberto FERGUSON.
[2022-06-23] MEDS: normal saline 1,000 ML IV SCH ×3 (19:13→20:20)
--- NOTE | 2022-06-23 19:25 | NUR ---
Transferred care to Alberto FERGUSON, Transported patient to room 3023 B.
[2022-06-23] MEDS: HYDROcodone/acetaminophen 10/325mg tab PO PRN (20:47)
[2022-06-23] MEDS: calcium carbonate 500mg chew tablet PO SCH (20:55)
[2022-06-23] MEDS ORDERED: AMLODIPINE PO SCH (21:00)
[2022-06-23] MEDS ORDERED: fluticasone nasal spray 16GM bottle NS SCH (21:00)
[2022-06-23] MEDS ORDERED: VALSARTAN PO SCH (21:00)
[2022-06-24] MEDS: HYDROcodone/acetaminophen 10/325mg tab PO PRN ×2 (01:24→06:47)
[2022-06-24] MEDS: normal saline 1,000 ML IV SCH (01:28)
[2022-06-24 02:08] VITALS: BP 121/84
[2022-06-24 06:00] VITALS: BP 130/84
--- NOTE | 2022-06-24 06:51 | NUR ---
Patient in room [facility] 3023. I have received report from PHYLLIS Dominguez and had the opportunity to ask questions and assume patient care.
[2022-06-24] MEDS ORDERED: HYDROchlorothiazide 12.5mg capsule PO SCH (08:00)
[2022-06-24] MEDS ORDERED: amLODIPine 5mg tablet PO SCH (08:00)
[2022-06-24] MEDS ORDERED: MOMETASONE FUROATE 50 MCG SCH (08:00)
[2022-06-24] MEDS ORDERED: losartan 50mg tablet PO SCH (08:00)
[2022-06-24] MEDS ORDERED: atenolol 50mg tablet PO SCH (08:00)
[2022-06-24] MEDS ORDERED: apixaban 5mg tablet PO SCH (08:00)
[2022-06-24] MEDS ORDERED: pantoprazole 40mg Tablet.DR PO SCH (08:00)
[2022-06-24] MEDS: calcium carbonate 500mg chew tablet PO SCH ×2 (08:56→12:30)
[2022-06-24 09:29] LABS: ALBUMIN 3.1 G/DL (3.4-5.0); ANION GAP 5 (8-16); BLOOD UREA NITROGEN 25 MG/DL (7-18); BUN/CREATININE RATIO 22.7 (5.4-32.0); CALCIUM 9.6 MG/DL (8.5-10.1); CHLORIDE 105 MMOL/L (99-107); GLUCOSE 96 MG/DL (70-104); MAGNESIUM 1.6 MG/DL (1.5-2.4); POTASSIUM 3.5 MMOL/L (3.5-5.1); SODIUM 138 MMOL/L (135-145); TOTAL CARBON DIOXIDE 27.8 MMOL/L (24-32); eGFR 69 ML/MIN
[2022-06-24 11:00] VITALS: BP 133/83
--- NOTE | 2022-06-24 14:28 | NUR ---
Patient was discharged at 1425 with instructions and verbalizing understanding of instructions, in wheelchair accompanied by nursing staff and family going home via private vehicle. All lines and tubes including PIV with cannula intact and tele monitor have been removed. Patient has a follow up appointment with Dr. Bernardo on Sunday and Dr. Santos's office will contact him directly. Patient is stable and appropriate for discharge.
== END 2022-06-24 14:21 | disposition home or self-care (01) | DRG 286 ==
LOC: SSTAY O 14:41 → PCU 3S 20:00 → SSTAY O 20:44 → PCU 3S 20:46
PROVIDERS: ADMIT Student in an Organized Health Care Education/Training Program; ATTEND Student in an Organized Health Care Education/Training Program
PROC: 4A023N7 Measurement of Cardiac Sampling and Pressure, Left Heart, Percutaneous Approach (ICD-10-PCS; principal; 2022-06-23)
PROC: B2111ZZ Fluoroscopy of Multiple Coronary Arteries using Low Osmolar Contrast (ICD-10-PCS; 2022-06-23)
PROC: 5A12012 Performance of Cardiac Output, Single, Manual (ICD-10-PCS; 2022-06-23)
PROC: B2151ZZ Fluoroscopy of Left Heart using Low Osmolar Contrast (ICD-10-PCS; 2022-06-23)
PROC: 5A09357 Assistance with Respiratory Ventilation, Less than 24 Consecutive Hours, Continuous Positive Airway Pressure (ICD-10-PCS; 2022-06-24)
DX: I71.20 Thoracic aortic aneurysm, without rupture, unspecified (principal); I49.01 Ventricular fibrillation; G47.33 Obstructive sleep apnea (adult) (pediatric); I10 Essential (primary) hypertension; I48.91 Unspecified atrial fibrillation
CPT/HCPCS: 36415; 80048; 80061; 83735; 85025; 85610; 85730; 92950; 93005; 93458; 99152; 99153; A6258; A6402; C1725; C1769; C1894; G0378; J0282; J1644; J1940; J2250; J2405; J3010; J3490; J7030; Q9967

== ENCOUNTER 2022-08-18 21:16 | Inpatient (IN) | payer BC ==
[~2022-08-18] VITALS: Ht 182.9 cm; Wt 150.5 kg
[~2022-08-18 21:16] MED LIST changes: -ALLO300T2 PO; -FAMO40TA58 PO; -FURO40TA4 PO; +HYDR12.55 PO; +Mometasone Furoate; +PANT40TA54 PO; -POTA-206 PO
[2022-08-18 21:37] LABS: BASOPHILS % (AUTO) 0.6 % (0-1); EOSINOPHILS # (AUTO) 0.3 X10'3 (0-0.9); EOSINOPHILS % (AUTO) 3.4 % (0-6); HEMATOCRIT 46.2 % (42.0-52.0); HEMOGLOBIN 15.9 g/dl (14.0-17.9); LYMPHOCYTES # (AUTO) 2.6 X10'3 (1.1-4.8); LYMPHOCYTES % (AUTO) 33.7 % (21-51); MEAN CORPUSCULAR HEMOGLOBIN 33.9 PG (27.0-31.0); MEAN CORPUSCULAR HGB CONC 34.5 g/dL (33.0-36.5); MEAN CORPUSCULAR VOLUME 98.1 FL (78-98); MEAN PLATELET VOLUME 8.5 FL (7.4-10.4); MONOCYTES # (AUTO) 0.5 X10'3 (0-0.9); MONOCYTES % (AUTO) 6.5 % (2-12); NEUTROPHILS # (AUTO) 4.3 X10'3 (1.8-7.7); NEUTROPHILS % (AUTO) 55.8 % (42-75); PLATELET COUNT 185 X10'3 (140-440); RED BLOOD COUNT 4.71 X10'6 (4.70-6.10); RED CELL DISTRIBUTION WIDTH 14.8 % (11.5-14.5); WHITE BLOOD COUNT 7.7 X10'3 (4.5-11.0)
[2022-08-18 21:51] LABS: ALANINE AMINOTRANSFERASE 23 U/L (12-78); ALBUMIN 3.5 G/DL (3.4-5.0); ALKALINE PHOSPHATASE 85 IU/L (46-116); BILIRUBIN,TOTAL 0.3 MG/DL (0.1-1.0); BLOOD UREA NITROGEN 19 MG/DL (7-18); BUN/CREATININE RATIO 17.6 (5.4-32.0); CALCIUM 9.5 MG/DL (8.5-10.1); CREATININE 1.08 MG/DL (0.60-1.10); MAGNESIUM 1.8 MG/DL (1.5-2.4); SODIUM 137 MMOL/L (135-145); TOTAL CARBON DIOXIDE 23.1 MMOL/L (24-32); TOTAL PROTEIN 7.1 G/DL (6.4-8.2); eGFR 70 ML/MIN
[2022-08-18 22:14] LABS: ANION GAP 11 (8-16); ASPARTATE AMINO TRANSFERASE 19 U/L (10-37); CHLORIDE 103 MMOL/L (99-107); GLUCOSE 203 MG/DL (70-104)
[2022-08-18 22:16] LABS: POTASSIUM 3.8 MMOL/L (3.5-5.1)
[2022-08-18] MEDS ORDERED: aspirin 81mg tab.chew PO ONE (22:20)
[2022-08-18] MEDS ORDERED: ISOS10TA8 PO (22:23)
[2022-08-18] MEDS: nitroGLYCERIN 0.4mg SUBLingual tab SL PRN ×3 (22:30→23:42)
[2022-08-18] MEDS ORDERED: magnesium 4gm in 100ml NS 100 ML IV PRN (23:00)
[2022-08-18] MEDS ORDERED: ondansetron/PF 4mg/2ml inj IV PRN (23:00)
[2022-08-18] MEDS ORDERED: bisacodyl 10mg suppository rectal RC PRN (23:00)
[2022-08-18] MEDS ORDERED: magnesium hydroxide 30ml (MOM) UD suspension PO PRN (23:00)
[2022-08-18] MEDS ORDERED: nitroGLYCERIN 0.4mg SUBLingual tab SL PRN (23:00)
[2022-08-18] MEDS ORDERED: HYDROcodone/acetaminophen 5mg/325mg tablet PO PRN (23:00)
[2022-08-18] MEDS ORDERED: acetaminophen 325mg tablet PO PRN ×2 (23:00)
[2022-08-18] MEDS ORDERED: morphine 2 MG/ML inj. syringe IV PRN (23:00)
[2022-08-18] MEDS ORDERED: mag hydrox/Alum hydrox/simeth 30ml oral suspension PO PRN (23:00)
[2022-08-18] MEDS ORDERED: potassium Cl 40MEQ/1/2NS 520ml 520 ML IV PRN (23:00)
[2022-08-18] MEDS ORDERED: ondansetron 4mg rapidly disintigrating tab PO PRN (23:00)
[2022-08-18] MEDS ORDERED: normal saline 1000ml 1,000 ML IV SCH (23:00)
[2022-08-18] MEDS ORDERED: HYDROcodone/acetaminophen 10/325mg tab PO PRN (23:00)
[2022-08-18] MEDS ORDERED: PERFLUTREN PROTEIN-A MICROSPHR (Optison) 0.22 MG/ML 3ML VIAL IV PRN (23:00)
[2022-08-18] MEDS ORDERED: magnesium Cl slow-release 64mg tablet PO PRN (23:00)
[2022-08-18] MEDS ORDERED: potassium Cl 20 mEq SR tablet PO PRN ×2 (23:00)
[2022-08-18] MEDS ORDERED: iohexol 350MG/ML 100ml bottle IV ONE (23:10)
--- NOTE | 2022-08-18 23:30 | NUR ---
Patient reports no improvement following SL nitro, provider advises additional doses for chest pain.
--- NOTE | 2022-08-18 23:41 | NUR ---
Patient reports chest pain remains 7/10 following SL nitro 2/3.
[2022-08-18] MEDS ORDERED: morphine 4 MG/ML inj SYRINge IV ONE (23:45)
--- NOTE | 2022-08-18 23:54 | NUR ---
Patient given now 3/3 SL nitro, pain remains unchanged. BP documented, mostly unchanged. Will proceed with PRN morphine and ordered transdermal nitro.
[2022-08-18] MEDS: nitroGLYCERIN 0.4mg/hour patch TD SCH (23:56)
--- NOTE | 2022-08-19 00:13 | NUR ---
I originally pulled 2mg morphine as ordered on PRN. Upon arriving in room, patient was noted to have a new order for one time 4mg IVP morphine. I returned to the [facility], attempted to pull additional 2mg Morphine, machine dispensed 4mg vial. I gave the 4mg vial as ordered per the one time dose, system required waste as [facility] believed this was a partial dose, but the 4mg was given. [facility]
[2022-08-19] MEDS ORDERED: heparin 25,000 UNIT/250ml bag 250 ML IV PRN (00:45)
[2022-08-19] MEDS ORDERED: heparin 10,000 units/1 ML INJ IV PRN (00:45)
[2022-08-19] MEDS ORDERED: heparin 10,000 units/1 ML INJ IV ONE (00:45)
--- NOTE | 2022-08-19 01:13 | NUR ---
Patient reports pain post morphine is greatly improved, states pain 5/10.
[2022-08-19] MEDS ORDERED: morphine 10mg/ml inj. IV ONE (01:20)
[2022-08-19 01:27] LABS: APTT 29 SECONDS (22-32)
[2022-08-19 03:04] LABS: BASOPHILS % (AUTO) 0.5 % (0-1); EOSINOPHILS # (AUTO) 0.2 X10'3 (0-0.9); EOSINOPHILS % (AUTO) 2.7 % (0-6); HEMATOCRIT 42.8 % (42.0-52.0); HEMOGLOBIN 14.2 g/dl (14.0-17.9); LYMPHOCYTES # (AUTO) 1.9 X10'3 (1.1-4.8); LYMPHOCYTES % (AUTO) 29.9 % (21-51); MEAN CORPUSCULAR HEMOGLOBIN 32.8 PG (27.0-31.0); MEAN CORPUSCULAR HGB CONC 33.2 g/dL (33.0-36.5); MEAN CORPUSCULAR VOLUME 98.7 FL (78-98); MEAN PLATELET VOLUME 8.7 FL (7.4-10.4); MONOCYTES # (AUTO) 0.5 X10'3 (0-0.9); MONOCYTES % (AUTO) 8.2 % (2-12); NEUTROPHILS # (AUTO) 3.8 X10'3 (1.8-7.7); NEUTROPHILS % (AUTO) 58.7 % (42-75); PLATELET COUNT 170 X10'3 (140-440); RED BLOOD COUNT 4.33 X10'6 (4.70-6.10); RED CELL DISTRIBUTION WIDTH 14.8 % (11.5-14.5); WHITE BLOOD COUNT 6.5 X10'3 (4.5-11.0)
[2022-08-19 03:16] LABS: ALANINE AMINOTRANSFERASE 19 U/L (12-78); ALBUMIN 3.3 G/DL (3.4-5.0); ALKALINE PHOSPHATASE 59 IU/L (46-116); ANION GAP 7 (8-16); ASPARTATE AMINO TRANSFERASE 37 U/L (10-37); BILIRUBIN,TOTAL 0.3 MG/DL (0.1-1.0); BLOOD UREA NITROGEN 17 MG/DL (7-18); BUN/CREATININE RATIO 19.1 (5.4-32.0); CALCIUM 9.4 MG/DL (8.5-10.1); CHLORIDE 106 MMOL/L (99-107); CREATININE 0.89 MG/DL (0.60-1.10); GLUCOSE 107 MG/DL (70-104); POTASSIUM 3.8 MMOL/L (3.5-5.1); SODIUM 138 MMOL/L (135-145); TOTAL CARBON DIOXIDE 24.9 MMOL/L (24-32); TOTAL PROTEIN 6.6 G/DL (6.4-8.2); eGFR 87 ML/MIN
[2022-08-19 03:20] LABS: MAGNESIUM 1.8 MG/DL (1.5-2.4)
--- NOTE | 2022-08-19 03:31 | NUR ---
Patient 3rd troponin resulted, lab called with critical troponin 2061. Patient currently reports pain is better than previously at 10/23. Admitting provider called at this time to update with critical lab and ongoing chest pain, advised he will order nitro drip.
[2022-08-19] MEDS ORDERED: nitroGLYCERIN-Tridil 50MG/D5W 250 ML IV SCH (03:35)
--- NOTE | 2022-08-19 04:15 | NUR ---
Nitro patch removed d/t start of nitro drip
--- NOTE | 2022-08-19 05:12 | NUR ---
Patient currently with nitro drip @ 25mcg/min as documented on SEP, BP remains stable. Provider notified patient reports no relief in pain, states pain mildly increased to apx 5/10, at best has been 4/10 today. Provider advised 2mg morphine okay (already ordered as PRN) and continue with nitro at 25mcg/min. Telephone order to repeat troponin at 0800 placed by RN.
[2022-08-19] MEDS: morphine 2 MG/ML inj. syringe IV PRN ×3 (05:18→14:35)
--- NOTE | 2022-08-19 07:58 | NUR ---
PAGED DR DAY AT THIS TIME TO INQUIRE ABOUT THE MEDS ORDER ,IF THE PT IS GOING FOR ANY PROCEDURE TODAY OR NOT?
[2022-08-19] MEDS ORDERED: losartan 50mg tablet PO SCH (08:00)
[2022-08-19] MEDS ORDERED: docusate sod 100mg capsule PO SCH (08:00)
[2022-08-19] MEDS ORDERED: atenolol 50mg tablet PO SCH (08:00)
[2022-08-19] MEDS ORDERED: pantoprazole 40mg Tablet.DR PO SCH (08:00)
[2022-08-19] MEDS ORDERED: amLODIPine 5mg tablet PO SCH (08:00)
[2022-08-19] MEDS ORDERED: K and/or MAG REPLACEMENT MC SCH (08:00)
[2022-08-19] MEDS ORDERED: HYDROchlorothiazide 12.5mg capsule PO SCH (08:00)
[2022-08-19] MEDS ORDERED: isosorbide mononitrate 30mg tab.SR.24H PO SCH (08:00)
[2022-08-19] MEDS ORDERED: famotidine 20mg tablet PO SCH (08:00)
--- NOTE | 2022-08-19 08:11 | NUR ---
SPOKE TO DR DAY REGARDING PT SITUATION ,INFORMED MD THAT PT STILL HAS CP 5/10 ON NITRO DRIP INFUSING AT 25 MCG/HR ,PT CP GET BETTER WITH MORPHINE ,PT IS ON HEPARIN DRIP FOR ELEVATED TROP .PT HAS BP MEDS DUE AT THIS TIME ALONG WITH OTHER HOME MEDS PER MD HOLD THE ISOSORBIDE NITRATE PT IS ALREADY ON NITRO DRIP .WILL FOLLOW THE ORDERS. PER MD HE WILL CONTACT DR SLAUGHTER AND CONTACT ME FOR POC .
[2022-08-19] MEDS ORDERED: aspirin 81mg tab.chew PO SCH (08:30)
[2022-08-19] MEDS: nitroGLYCERIN 0.4mg/hour patch TD SCH (09:00)
--- NOTE | 2022-08-19 09:17 | NUR ---
PER DR DAY PLAN IS TO TRANSFER THE PT TO [facility] FOR CABG PROCEDURE.
[2022-08-19 15:06] VITALS: BP 128/87
[2022-08-19] MEDS ORDERED: fluticasone nasal spray 16GM bottle NS SCH (21:00)
== END 2022-08-19 15:48 | disposition short-term general hospital (02) | DRG 281 ==
LOC: ER 21:16 → ED HOLD 23:06
PROVIDERS: ADMIT Family Medicine; ATTEND Family Medicine
PROC: B32T1ZZ Computerized Tomography (CT Scan) of Left Pulmonary Artery using Low Osmolar Contrast (ICD-10-PCS; 2022-08-18)
PROC: B3201ZZ Computerized Tomography (CT Scan) of Thoracic Aorta using Low Osmolar Contrast (ICD-10-PCS; 2022-08-18)
PROC: B32S1ZZ Computerized Tomography (CT Scan) of Right Pulmonary Artery using Low Osmolar Contrast (ICD-10-PCS; 2022-08-18)
PROC: 5A09357 Assistance with Respiratory Ventilation, Less than 24 Consecutive Hours, Continuous Positive Airway Pressure (ICD-10-PCS; principal; 2022-08-19)
DX: I21.4 Non-ST elevation (NSTEMI) myocardial infarction (principal); I48.20 Chronic atrial fibrillation, unspecified; C73 Malignant neoplasm of thyroid gland; Z20.822 Contact with and (suspected) exposure to COVID-19; G47.33 Obstructive sleep apnea (adult) (pediatric); K21.9 Gastro-esophageal reflux disease without esophagitis; I10 Essential (primary) hypertension; M10.9 Gout, unspecified; I25.119 Atherosclerotic heart disease of native coronary artery with unspecified angina pectoris; I71.21 Aneurysm of the ascending aorta, without rupture; Z86.73 Personal history of transient ischemic attack (TIA), and cerebral infarction without residual deficits; Z88.2 Allergy status to sulfonamides; Z88.8 Allergy status to other drugs, medicaments and biological substances; Z91.018 Allergy to other foods; Z86.718 Personal history of other venous thrombosis and embolism; Z83.3 Family history of diabetes mellitus; Z82.49 Family history of ischemic heart disease and other diseases of the circulatory system; Z79.899 Other long term (current) drug therapy
CPT/HCPCS: 36415; 71045; 71275; 74175; 80053; 83735; 83880; 84484; 85025; 85610; 85730; 87811; 94660; 94760; 99285; G0378; J1644; J2270; J2274; J2405; J3490; J7030; Q9967

== ENCOUNTER 2024-08-06 13:24 | Emergency (ER) | payer BC ==
[~2024-08-06] VITALS: Ht 182.9 cm; Wt 135.0 kg
[~2024-08-06 13:24] MED LIST changes: +ISOS10TA8 PO; -Mometasone Furoate
[2024-08-06 13:28] VITALS: TEMP 97.7
[2024-08-06 13:55] LABS: BASOPHILS % (AUTO) 0.3 % (0-1); EOSINOPHILS # (AUTO) 0.1 X10'3 (0-0.9); EOSINOPHILS % (AUTO) 1.4 % (0-6); HEMATOCRIT 41.2 % (42.0-52.0); HEMOGLOBIN 14.2 g/dl (14.0-17.9); MEAN CORPUSCULAR HGB CONC 34.5 g/dL (33.0-36.5); MEAN CORPUSCULAR VOLUME 98.4 FL (78-98); MEAN PLATELET VOLUME 7.4 FL (7.4-10.4); MONOCYTES # (AUTO) 0.5 X10'3 (0-0.9); MONOCYTES % (AUTO) 6.2 % (2-12); NEUTROPHILS # (AUTO) 6.7 X10'3 (1.8-7.7); NEUTROPHILS % (AUTO) 80.1 % (42-75); PLATELET COUNT 171 X10'3 (140-440); RED BLOOD COUNT 4.19 X10'6 (4.70-6.10); RED CELL DISTRIBUTION WIDTH 14.4 % (11.5-14.5); WHITE BLOOD COUNT 8.4 X10'3 (4.5-11.0)
[2024-08-06 14:12] LABS: ALANINE AMINOTRANSFERASE 17 U/L (12-78); ALBUMIN 3.7 G/DL (3.4-5.0); ALBUMIN/GLOBULIN RATIO 1.1 (1.1-1.5); ALKALINE PHOSPHATASE 62 IU/L (46-116); ANION GAP 8 (8-16); ASPARTATE AMINO TRANSFERASE 16 U/L (10-37); BILIRUBIN,TOTAL 0.8 MG/DL (0.1-1.0); BLOOD UREA NITROGEN 15 MG/DL (7-18); BUN/CREATININE RATIO 12.2 (10.0-20.0); CALCIUM 8.6 MG/DL (8.5-10.1); CHLORIDE 104 MMOL/L (99-107); CREATININE 1.23 MG/DL (0.60-1.10); GLUCOSE 121 MG/DL (70-104); LIPASE 30 U/L (16-77); POTASSIUM 3.5 MMOL/L (3.5-5.1); SODIUM 138 MMOL/L (135-145); TOTAL PROTEIN 7.1 G/DL (6.4-8.2); eCRCL 69 ML/MIN; eGFR 60 ML/MIN
[2024-08-06] MEDS: ketorolac trometh 15mg/ml vial 15 MG/ML ML IV ONE (15:03)
[2024-08-06 15:26] LABS: BILIRUBIN,URINE NEGATIVE (Neg); CLARITY,URINE CLEAR (Clear); COLOR,URINE YELLOW (Yellow); GLUCOSE, URINE NEGATIVE (Neg); KETONES,URINE NEGATIVE (Neg); LEUKOCYTE ESTERASE ,URINE NEGATIVE (Neg); NITRITES, URINE NEGATIVE (Neg); OCCULT BLOOD,URINE MODERATE (Neg); PROTEIN,URINE NEGATIVE (Neg); UROBILINOGEN,URINE 0.2 E.U/dL (0.2-1.0)
[2024-08-06 15:31] LABS: UA COLLECTION TYPE VOIDED
[2024-08-06 15:33] LABS: BACTERIA,URINE NONE SEEN /HPF (Neg); SQUAMOUS EPITHELIAL CELL,UR NONE SEEN /LPF (FEW); WBC,URINE NONE SEEN /HPF (0-4)
[2024-08-06] MEDS ORDERED: SILO8CAP8 PO (16:35)
[2024-08-06] MEDS: ondansetron 4mg rapidly disintigrating tab PO ONE (16:57)
[2024-08-06] MEDS: HYDROcodone/acetaminophen 10/325mg tab PO ONE (16:58)
[2024-08-06 17:08] VITALS: BP 145/98; PULSE 98; RESP 18; O2SAT 96
== END 2024-08-06 17:16 | disposition home or self-care (01) ==
LOC: ER 13:25
DX: N13.2 Hydronephrosis with renal and ureteral calculous obstruction (principal); I25.10 Atherosclerotic heart disease of native coronary artery without angina pectoris; I11.0 Hypertensive heart disease with heart failure; I50.9 Heart failure, unspecified; G47.30 Sleep apnea, unspecified; I48.91 Unspecified atrial fibrillation; K21.9 Gastro-esophageal reflux disease without esophagitis; Z95.1 Presence of aortocoronary bypass graft; Z86.73 Personal history of transient ischemic attack (TIA), and cerebral infarction without residual deficits; Z88.2 Allergy status to sulfonamides; Z91.010 Allergy to peanuts; Z88.8 Allergy status to other drugs, medicaments and biological substances; Z98.890 Other specified postprocedural states
CPT/HCPCS: 36415; 74176; 80053; 81001; 83690; 85025; 96374; 99285; J1885